=== PATIENT | male | born 1960 | race Caucasian/White ===

== ENCOUNTER → 2017-06-04 | Outpatient (CLI) | payer BC | LOC: COL.VAS 05-28 08:00 | DX: I08.3 Combined rheumatic disorders of mitral, aortic and tricuspid valves (principal); I77.819 Aortic ectasia, unspecified site ==

== ENCOUNTER → 2024-02-14 | Outpatient (CLI) | payer BC | LOC: COL.RAD 08:14 | DX: S32.010A Wedge compression fracture of first lumbar vertebra, initial encounter for closed fracture (principal); S22.089A Unspecified fracture of T11-T12 vertebra, initial encounter for closed fracture; M47.816 Spondylosis without myelopathy or radiculopathy, lumbar region; M47.817 Spondylosis without myelopathy or radiculopathy, lumbosacral region; M51.36 Other intervertebral disc degeneration, lumbar region; M51.37 Other intervertebral disc degeneration, lumbosacral region; M48.07 Spinal stenosis, lumbosacral region; X58.XXXA Exposure to other specified factors, initial encounter ==

== ENCOUNTER 2024-03-13 09:31 | Outpatient (CLI) | payer BC ==
[~2024-03-13] VITALS: Ht 188 cm; Wt 76.4 kg
[2024-03-13] MEDS ORDERED: Denosumab 60 MG/ML SYRINGE SQ ONE (10:00)
[2024-03-13 10:07] VITALS: BP 151/82; PULSE 48; TEMP 97.5
[2024-03-13] MEDS ORDERED: LOTREL 10 MG-401 CAP PO (10:10)
[2024-03-13] MEDS ORDERED: BYSTOLIC20 MG PO (10:11)
[2024-03-13] MEDS ORDERED: ISORDIL 20MG20 M1 PO (10:11)
[2024-03-13] MEDS ORDERED: ALEVE 220MG220 MG PO (10:12)
[2024-03-13] MEDS ORDERED: TYLENOL 500MG500 MG PO (10:12)
[2024-03-13] MEDS ORDERED: COMPLETE MULTI1 TAB PO (10:12)
[2024-03-13] MEDS ORDERED: PROLIA60 MG/ML SQ (10:12)
--- NOTE | 2024-03-13 10:48 | NUR ---
Pt tolerated prolia without issue. He has remained in dept for monitoring following initial dose. Respirations remain even and unlabored. He exits dept with steady gait, free of complaints at discharge.
== END 2024-03-13 10:49 | disposition home or self-care (01) ==
LOC: EUO 09:31
DX: M81.0 Age-related osteoporosis without current pathological fracture (principal)
CPT/HCPCS: J0897